=== PATIENT | female | born 1995 | race Caucasian/White ===

== ENCOUNTER 2017-01-20 10:24 | Inpatient (IN) | payer MEDICAID ==
[~2017-01-20 10:24] MED LIST: ALBUTEROL0.63 MG/3 IH; BENTYL20 MG PO; DHA100 M1; PRENA1 CHEW TA1.4 M1
[2017-01-22 07:15] LABS: BASO % 0.3 % (0-2); EOS % 1.6 % (0-7); EOSINOPHIL ABSOLUTE COUNT 0.2 tho/cmm (0.0-0.7); HGB-HEMOGLOBIN 10.8 gm/dl (12.0-15.5); IMMATURE GRANULOCYTES PERCENT 0.7 % (0-0.3); LYMPH % 13.6 % (20-45); MCH (MEAN CORPUSCULAR HGB) 30.3 pg (28.0-32.0); MCHC MEAN CORPUSCULAR HGB CONC 32.7 % (32.0-36.0); MCV (MEAN CELL VOLUME) 92.7 fl (82.0-96.0); MEAN PLATELET VOLUME 10.8 cmc (9.4-12.4); MONOCYTE ABSOLUTE COUNT 1.3 tho/cmm (0.0-1.2); NEUTROPHILS % 74.8 % (40-80); PLATELET COUNT 226 tho/cmm (150-450); RED BLOOD COUNT 3.56 mil/cmm (4.00-5.20); RED CELL DISTRIBUTION WIDTH 14.5 % (12.4-16.4); WHITE BLOOD COUNT 14.7 tho/cmm (4.0-10.0)
[2017-01-23] MEDS ORDERED: IBUPROFEN800 M1 PO (07:47)
== END 2017-01-23 11:15 | DRG 775 ==
LOC: LDR 10:24 → OBGE 01-21 14:40
PROVIDERS: ADMIT Family Medicine
PROC: 10907ZC Drainage of Amniotic Fluid, Therapeutic from Products of Conception, Via Natural or Artificial Opening (ICD-10-PCS; principal; 2017-01-21)
PROC: 0UQMXZZ Repair Vulva, External Approach (ICD-10-PCS; principal; 2017-01-21)
PROC: 3E033VJ Introduction of Other Hormone into Peripheral Vein, Percutaneous Approach (ICD-10-PCS; principal; 2017-01-21)
PROC: 10E0XZZ Delivery of Products of Conception, External Approach (ICD-10-PCS; principal; 2017-01-21)
PROC: 0KQM0ZZ Repair Perineum Muscle, Open Approach (ICD-10-PCS; principal; 2017-01-21)
DX: O48.0 Post-term pregnancy (principal); O77.0 Labor and delivery complicated by meconium in amniotic fluid; O70.1 Second degree perineal laceration during delivery; Z3A.40 40 weeks gestation of pregnancy; Z37.0 Single live birth; O71.82 Other specified trauma to perineum and vulva
CPT/HCPCS: J2405; J2590; J3010